=== PATIENT | female | born 1965 | race African-American/Black ===

== ENCOUNTER 2020-06-13 10:25 | Inpatient (IN) | payer OTHER ==
[2020-06-13 11:17] VITALS: BMI 20.2
[2020-06-13] MEDS ORDERED: MAGNESIUM CITRATE 300 ML BOTTLE PO PRN (11:55)
[2020-06-13] MEDS ORDERED: NALOXONE HCL 0.4 MG/ML VIAL IM PRN (11:55)
[2020-06-13] MEDS ORDERED: BISMUTH SUBSALICYLATE 524 MG/30 ML UD PO PRN (11:55)
[2020-06-13] MEDS ORDERED: NICOTINE POLACRILEX 2 MG GUM BUC PRN (11:55)
[2020-06-13] MEDS ORDERED: cloNIDine HCL 0.1 MG TABLET PO PRN (11:55)
[2020-06-13] MEDS ORDERED: MAGNESIUM HYDROX 2400MG/30ML ORAL SUSPENSION 30 ML CUP PO PRN (11:55)
[2020-06-13] MEDS ORDERED: MENTHOL/PHENOL 1 EACH UD MM PRN (11:55)
[2020-06-13] MEDS ORDERED: MAG HYDROX/AL HYDROX/SIMETH 30 ML UNIT-DOSE CUP PO PRN (11:55)
[2020-06-13] MEDS ORDERED: ACETAMINOPHEN 325 MG TABLET (FP) PO PRN ×2 (11:55)
[2020-06-13] MEDS ORDERED: METHADONE HCL 10 MG TABLET (FOR DETOX USE ONLY) PO ONE (11:55)
[2020-06-13] MEDS: MELATONIN 5 MG TABLETS PO SCH (22:33)
[2020-06-13] MEDS: THIAMINE HCL 100 MG TABLET (FP) PO SCH (22:33)
[2020-06-14] MEDS ORDERED: METHADONE HCL 10 MG TABLET (FOR DETOX USE ONLY) ONE (08:49)
[2020-06-14] MEDS ORDERED: METHADONE HCL 5 MG TABLET (FOR DETOX USE ONLY) ONE (08:49)
[2020-06-14] MEDS: NICOTINE 7 MG/24 HOURS TOPICAL PATCH TD SCH (09:32)
[2020-06-14] MEDS: PRENATAL VITAMINS W/ FOLIC ACID TABLET (FP) PO SCH (09:32)
[2020-06-14] MEDS: METHOCARBAMOL 500 MG TABLET PO PRN (09:32)
[2020-06-14] MEDS: IBUPROFEN 400 MG TABLET (FP) PO PRN (09:33)
[2020-06-14] MEDS ORDERED: METHADONE (DETOX) 20 MG, METHADONE (DETOX) 5 MG PO ONE (10:00)
[2020-06-14 12:17] LABS: POTASSIUM 4.4 mmol/L (3.5-5.1)
[2020-06-14 12:22] LABS: CALCIUM 8.4 mg/dL (8.5-10.1)
[2020-06-14 12:24] LABS: ALBUMIN 3.3 g/dl (3.4-5.0); BLOOD UREA NITROGEN 14.4 mg/dL (7-18)
[2020-06-14 12:25] LABS: HEMATOCRIT 41.2 % (32.4-45.2); HEMOGLOBIN 13.6 GM/dL (10.7-15.3); MCH 31.7 pg (25.7-33.7); MEAN CELL VOLUME 96.3 fl (80-96); MEAN PLT VOLUME 8.4 fl (7.5-11.1); PLATELET COUNT 307 K/MM3 (134-434); RBC 4.28 M/mm3 (3.60-5.2); RDW 13.1 % (11.6-15.6); WHITE BLOOD COUNT 6.2 K/mm3 (4.0-10.0)
[2020-06-14 12:27] LABS: CREATININE 0.8 mg/dL (0.55-1.3)
[2020-06-14 12:28] LABS: BILIRUBIN,TOTAL 0.8 mg/dL (0.2-1)
[2020-06-14 12:29] LABS: TOT PROT 6.3 g/dl (6.4-8.2)
[2020-06-14 13:14] LABS: HIV INTERPRETATION NEGATIVE (NEGATIVE)
[2020-06-14] MEDS: MELATONIN 5 MG TABLETS PO SCH (22:26)
[2020-06-14] MEDS: THIAMINE HCL 100 MG TABLET (FP) PO SCH (22:26)
[2020-06-15] MEDS: METHOCARBAMOL 500 MG TABLET PO PRN (08:37)
[2020-06-15] MEDS ORDERED: METHADONE HCL 10 MG TABLET (FOR DETOX USE ONLY) PO ONE (10:00)
[2020-06-15] MEDS: PRENATAL VITAMINS W/ FOLIC ACID TABLET (FP) PO SCH (10:38)
[2020-06-15] MEDS: NICOTINE 7 MG/24 HOURS TOPICAL PATCH TD SCH (10:39)
[2020-06-15] MEDS: IBUPROFEN 400 MG TABLET (FP) PO PRN (10:39)
[2020-06-15] MEDS: LIDOCAINE 5% TOPICAL PATCH TP SCH (12:38)
[2020-06-15] MEDS: LIDOCAINE PATCH REMOVAL MC SCH (22:19)
[2020-06-15] MEDS: THIAMINE HCL 100 MG TABLET (FP) PO SCH (22:26)
[2020-06-15] MEDS: MELATONIN 5 MG TABLETS PO SCH (22:26)
[2020-06-16] MEDS ORDERED: METHADONE HCL 5 MG TABLET (FOR DETOX USE ONLY) ONE (08:26)
[2020-06-16] MEDS ORDERED: METHADONE HCL 10 MG TABLET (FOR DETOX USE ONLY) ONE (08:26)
[2020-06-16] MEDS: PRENATAL VITAMINS W/ FOLIC ACID TABLET (FP) PO SCH (09:43)
[2020-06-16] MEDS: NICOTINE 7 MG/24 HOURS TOPICAL PATCH TD SCH (09:44)
[2020-06-16] MEDS: METHOCARBAMOL 500 MG TABLET PO PRN (09:44)
[2020-06-16] MEDS: LIDOCAINE 5% TOPICAL PATCH TP SCH (09:44)
[2020-06-16] MEDS: IBUPROFEN 400 MG TABLET (FP) PO PRN (09:45)
[2020-06-16] MEDS ORDERED: METHADONE (DETOX) 10 MG, METHADONE (DETOX) 5 MG PO ONE (10:00)
[2020-06-16] MEDS: MELATONIN 5 MG TABLETS PO SCH (21:52)
[2020-06-16] MEDS: THIAMINE HCL 100 MG TABLET (FP) PO SCH (21:52)
[2020-06-16] MEDS: LIDOCAINE PATCH REMOVAL MC SCH (21:52)
[2020-06-17] MEDS: LIDOCAINE 5% TOPICAL PATCH TP SCH (09:21)
[2020-06-17] MEDS: PRENATAL VITAMINS W/ FOLIC ACID TABLET (FP) PO SCH (09:21)
[2020-06-17] MEDS: NICOTINE 7 MG/24 HOURS TOPICAL PATCH TD SCH (09:22)
[2020-06-17 09:54] VITALS: BP 90/61; PULSE 78; TEMP 97.1
[2020-06-17] MEDS ORDERED: METHADONE HCL 10 MG TABLET (FOR DETOX USE ONLY) PO ONE (10:00)
[2020-06-18] MEDS ORDERED: METHADONE HCL 5 MG TABLET (FOR DETOX USE ONLY) PO ONE (06:00)
== END 2020-06-17 09:46 | disposition home or self-care (01) | DRG 773 ==
LOC: YASAS 10:25 → Y6N 12:06 → Y3N 12:12
PROVIDERS: ADMIT Allergy & Immunology; ATTEND Allergy & Immunology
PROC: HZ2ZZZZ Detoxification Services for Substance Abuse Treatment (ICD-10-PCS; principal; 2020-06-13)
DX: F11.23 Opioid dependence with withdrawal (principal); F17.210 Nicotine dependence, cigarettes, uncomplicated; F17.213 Nicotine dependence, cigarettes, with withdrawal
CPT/HCPCS: 36415; 80053; 85027; 86780; 87389; 93005; 93010; C9803; J0735; U0003